=== PATIENT | female | born 1985 | race Caucasian/White ===

== ENCOUNTER 2017-05-21 16:18 | Emergency (ER) | payer BC, OTHER ==
[2017-05-21 16:40] VITALS: BP 121/79; PULSE 90; RESP 16; TEMP 97; O2SAT 99
== END 2017-05-21 16:58 | disposition home or self-care (01) | DRG 607 ==
LOC: ED 16:18
DX: L30.9 Dermatitis, unspecified (principal)
CPT/HCPCS: 99282

== ENCOUNTER 2018-03-13 23:52 | Inpatient (IN) | payer OTHER ==
[2018-03-14] MEDS ORDERED: METHYLERGONOVINE MALEATE 0.2 MG/ML SOL IM PRN (00:23)
[2018-03-14] MEDS ORDERED: FENTANYL 100MCG/2ML SOL IV PRN (00:23)
[2018-03-14] MEDS ORDERED: OXYTOCIN 10000 MU/ML SOL IM PRN (00:23)
[2018-03-14] MEDS ORDERED: LACTATED RINGERS 1,000 ML IV PRN (00:23)
[2018-03-14] MEDS ORDERED: CARBOPROST 250 MCG/ML SOL IM PRN (00:23)
[2018-03-14] MEDS ORDERED: MEPIVACAINE HCL 1% MPF 30 ML/VIAL SOL INFIL PRN (00:23)
[2018-03-14 00:25] LABS: BASOPHILS % (AUTO) 1 % (0-3); EOSINOPHILS % (AUTO) 1 % (0-9); HEMATOCRIT 40 % (35-47); HEMOGLOBIN 13.4 gm/dl (12.0-15.5); LYMPHOCYTES % (AUTO) 16.9 % (10-50); MEAN CORPUSCULAR HEMOGLOBIN 29.6 pg (27.0-32.0); MEAN CORPUSCULAR HGB CONC 33.2 gm/dl (32.0-36.0); MEAN CORPUSCULAR VOLUME 89 fL (81-99); MONOCYTES % (AUTO) 6.3 % (0-12); NEUTROPHILS % (AUTO) 74.7 % (37-80)
[2018-03-14] MEDS: SODIUM CHLORIDE 0.9% FLUSH 10 ML SOL IV PRN ×2 (04:41→07:59)
[2018-03-14] MEDS: SODIUM CHLORIDE 0.9% FLUSH 10 ML SOL IV SCH ×2 (04:48→07:53)
[2018-03-14] MEDS: LACTATED RINGERS 1,000 ML IV SCH ×4 (06:50→11:27)
[2018-03-14] MEDS ORDERED: DIPHENHYDRAMINE 50 MG/ML SOL IV PRN (06:53)
[2018-03-14] MEDS ORDERED: NALOXONE HYDROCHLORIDE 0.4 MG/ML SOL IV PRN (06:53)
[2018-03-14] MEDS ORDERED: EPHEDRINE SULFATE 50 MG/ML SOL IV PRN (06:53)
[2018-03-14] MEDS ORDERED: NALBUPHINE HCL 20 MG/ML SOL IV PRN (06:53)
[2018-03-14] MEDS ORDERED: LIDOCAINE HCL 2% MPF 10 ML SOL ONE ×2 (07:06→12:32)
[2018-03-14] MEDS ORDERED: ROPIVACAINE HYDROCHLORIDE 5 MG/ML SOL ONE (07:06)
[2018-03-14] MEDS ORDERED: FENTANYL 250 MCG/ 5ML SOL ONE (07:06)
[2018-03-14] MEDS ORDERED: BENZOCAINE/MENTHOL 1 SPR TOP PRN (15:00)
[2018-03-14] MEDS ORDERED: WITCH HAZEL 1 EA PAD TOP PRN (15:00)
[2018-03-14] MEDS ORDERED: METHYLERGONOVINE MALEATE 0.2 MG TAB PO PRN (15:00)
[2018-03-14] MEDS ORDERED: BISACODYL 10 MG SUP PR PRN (15:00)
[2018-03-14] MEDS ORDERED: FLEET ENEMA PR PRN (15:00)
[2018-03-14] MEDS ORDERED: APAP/HYDROCODONE 1 EACH TABLET PO PRN (15:00)
[2018-03-14] MEDS ORDERED: TEMAZEPAM 15MG 15 MG CAP PO PRN (15:00)
[2018-03-14] MEDS: IBUPROFEN 600 MG TAB PO PRN (15:34)
[2018-03-14] MEDS: DOCUSATE SODIUM 100 MG SGL PO SCH (21:02)
[2018-03-15] MEDS: IBUPROFEN 600 MG TAB PO PRN ×2 (01:25→08:41)
[2018-03-15] MEDS: DOCUSATE SODIUM 100 MG SGL PO SCH (08:41)
[2018-03-15] MEDS ORDERED: FOLIC ACID 1 MG TAB PO SCH (09:00)
[2018-03-15] MEDS ORDERED: MULTIVITAMIN2 1 EA TAB PO SCH (09:00)
[2018-03-15] MEDS ORDERED: [UNRECOGNIZED DRUG - REMARK] PO SCH (09:00)
[2018-03-15 16:05] VITALS: BP 102/61; PULSE 76; RESP 16; TEMP 97.3; O2SAT 97
== END 2018-03-15 19:40 | disposition home or self-care (01) | DRG 807 ==
LOC: OB 23:52 → OBSVTOIN 23:52
PROVIDERS: ADMIT Family Medicine; ATTEND Family Medicine
PROC: 10E0XZZ Delivery of Products of Conception, External Approach (ICD-10-PCS; principal; 2018-03-14)
PROC: 0KQM0ZZ Repair Perineum Muscle, Open Approach (ICD-10-PCS; 2018-03-14)
PROC: 10907ZC Drainage of Amniotic Fluid, Therapeutic from Products of Conception, Via Natural or Artificial Opening (ICD-10-PCS; 2018-03-14)
PROC: 6A550ZT Pheresis of Cord Blood Stem Cells, Single (ICD-10-PCS; 2018-03-14)
DX: O80 Encounter for full-term uncomplicated delivery (principal); Z37.0 Single live birth; Z3A.40 40 weeks gestation of pregnancy
CPT/HCPCS: 36415; 59025; 85018; 85025; 94762; J0670; J2590; J2795; J3010; A9270-GY; J3490